=== PATIENT | female | born 1990 | race Caucasian/White ===

== ENCOUNTER 2020-05-12 22:46 | Inpatient (IN) | payer OTHER, BC ==
[2020-05-12] MEDS ORDERED: Lidocaine 1% 30 ML SDV INJECT PRN (23:16)
[2020-05-12] MEDS ORDERED: Ondansetron 4 MG/2 ML SDV IVPUSH PRN (23:16)
[2020-05-12] MEDS ORDERED: Lactated Ringers 1,000 ML IV ONE (23:16)
[2020-05-12] MEDS ORDERED: Sodium Chloride 0.9% 10 ML Syringe FLUSH PRN (23:16)
[2020-05-12] MEDS ORDERED: Misoprostol 400 MCG (4 X 100 MCG TAB) RECTAL PRN (23:16)
[2020-05-12] MEDS ORDERED: Tranexamic Acid 1,000 MG in Sodium Chloride 0.9% 100 ML IV PRN (23:16)
[2020-05-12] MEDS ORDERED: Carboprost Tromethamine 250 MCG/1 ML Amp IM PRN (23:16)
[2020-05-12] MEDS ORDERED: Methylergonovine 0.2 MG/1 ML Amp IM PRN (23:16)
[2020-05-12] MEDS: Lactated Ringers 1,000 ML IV SCH (23:20)
[2020-05-13] MEDS: Oxytocin/Normal Saline 30 UNIT/500 ML BAG IV SCH ×2 (00:12→02:43)
[2020-05-13] MEDS ORDERED: Tranexamic Acid 1,000 MG in Sodium Chloride 0.9% 100 ML IV PRN (00:17)
[2020-05-13] MEDS ORDERED: Oxytocin 10 Units/1 ML SDV IM PRN (00:17)
[2020-05-13] MEDS ORDERED: Sodium Chloride 0.9% 10 ML Syringe FLUSH PRN (00:17)
[2020-05-13] MEDS ORDERED: Benzocaine/Menthol 20%-0.5% Spray 56 GM Canister TOP PRN (00:17)
[2020-05-13] MEDS ORDERED: Zolpidem 5 MG Tab PO PRN (00:17)
[2020-05-13] MEDS ORDERED: Misoprostol 400 MCG (4 X 100 MCG TAB) RECTAL PRN (00:17)
[2020-05-13] MEDS ORDERED: Simethicone 80 MG Tab.Chew PO PRN (00:17)
[2020-05-13] MEDS ORDERED: Carboprost Tromethamine 250 MCG/1 ML Amp IM PRN (00:17)
[2020-05-13] MEDS: Ibuprofen 800 MG Tab PO PRN ×3 (00:49→17:23)
[2020-05-13] MEDS: Acetaminophen 325 MG Tab PO PRN ×4 (00:50→23:58)
[2020-05-13] MEDS: Lactated Ringers 1,000 ML IV SCH (02:42)
[2020-05-13] MEDS: Prenatal Multivitamin with Calcium/Folic Acid/Iron Tab PO SCH (09:06)
--- NOTE | 2020-05-13 16:28 | DEL ---
DATE: 05/12/2020 PRE-DELIVERY DIAGNOSIS: This is an intrauterine at term, admitted in active labor. PROCEDURE: A normal spontaneous vaginal delivery. FINDINGS: There was a second-degree midline laceration which was repaired with lidocaine. Baby did weigh 3390 g. score was 7 and 9. ESTIMATED BLOOD LOSS: Normal for vaginal delivery. PROCEDURE IN DETAIL: The patient was admitted to Labor and Delivery already entering the second phase of labor. She declined intrathecal. She was group B strep negative. She began pushing. 's head was delivered without any difficulties. With some gentle traction, the shoulder was delivered. The was completely delivered and placed on the maternal abdomen. The delayed cord clamping was then performed. Cord was cut and clamped. Cord blood was collected. The was doing well. score 7 and 9. Baby weighed 3390 g. The midline laceration was injected with local anesthesia. The midline laceration was repaired with a 3-0 Vicryl in a normal fashion. The placenta was then delivered without any difficulties, intact. The uterus was massaged and third stage Pitocin was started and estimated blood loss was normal for vaginal delivery. At the end of the procedure, mom and baby were both doing well. [facility] /[id number]
[2020-05-13] MEDS: Docusate Sodium 100 MG Cap PO PRN (19:31)
[2020-05-14] MEDS: Ibuprofen 800 MG Tab PO PRN (04:31)
[2020-05-14] MEDS: Docusate Sodium 100 MG Cap PO PRN (08:44)
[2020-05-14] MEDS: Acetaminophen 325 MG Tab PO PRN (08:45)
[2020-05-14] MEDS: Prenatal Multivitamin with Calcium/Folic Acid/Iron Tab PO SCH (08:45)
--- NOTE | 2020-05-14 08:48 | HP ---
LOCATION: [facility]. HISTORY OF PRESENT ILLNESS: The patient is a 29-year-old, G1, at 39 weeks and 4 days' gestational age with contractions and loss of fluid. She has had no vaginal bleeding, good movement. This is a Femara . She is on metformin. OB HISTORY: The patient is a G1. MANAGER TAX HISTORY: She did have an abnormal Pap previously, though followup was negative. PAST MEDICAL HISTORY: Negative. PAST SURGICAL HISTORY: A foot surgery and wisdom teeth removed. SOCIAL HISTORY: The patient does not smoke. ALLERGIES: The patient has no known drug allergies. care so far: The patient's blood type O-positive, antibody negative. She is rubella immune. Syphilis negative. Hepatitis B negative. HIV negative. Gonorrhea and chlamydia negative. 1 hour was 145, but 3-hour was normal. Group B strep was negative. On 01/04/2020, she did have an ultrasound, which showed a low anterior placenta, but anatomy was normal. On 03/27/2020, interval growth scan was normal and the low placenta had resolved. PHYSICAL EXAMINATION: Vital Signs: The patient is afebrile. Heart rate 101, blood pressure 136/77, respiratory rate 20. EFM is reactive, reassuring. She is vince every 2 to 3 minutes. When I checked her in the OB triage, she was already complete and +2 station. LABORATORY DATA: The patient's CBC; white count 15, hemoglobin 15.1, platelets 293, and she is COVID negative. ASSESSMENT AND PLAN: Intrauterine at term, in active labor, entering the second phase of labor. We will expect a normal spontaneous vaginal delivery, and she is group B strep negative. [facility] /[id number]
--- NOTE | 2020-05-14 20:21 | DISCH ---
FINAL DIAGNOSES: Spontaneous vaginal delivery at 39-4/7-week gestation, O positive blood type, rubella immune, group B strep negative, history of infertility, viable female , anemia, primipara delivered. FINDINGS: This delightful 29-year-old 1, para 0 at 30-4/7 weeks' gestation presented with onset of active labor with contractions and loss of clear fluid. She had good movement and no bleeding. She had a history of infertility and had seen Dr. Rivas early on and had been on metformin throughout the . Please see her notes for details. Labs were as noted. Please see her admission H and P for further details of her labs and her care. She is very compliant with her care. Ultrasound was consistent with her menstrual dates and infertility dates. Preliminary ultrasound showed low-lying placenta, but followup was normal. Anatomy was normal and did show 97 percentile for baby size. However, followup showed a 26 percentile. One-hour sugar screen was elevated, but 3-hour testing was within normal limits. On arrival, she had advanced cervical dilation. Admission hemoglobin was 15.1. Her COVID testing was negative. Platelet count was normal, and her monitoring was reassuring, category 1 strip. She began pushing with excellent results and subsequently went on to deliver a viable female , weighing 7 pounds 7 ounces/3390 g with scores of 7 and 7 on 05/12/2020 at 2358. She had a second-degree laceration, which was repaired in standard fashion under local anesthesia by Dr. Rivas. Please see his notes for further details. Her course was uneventful and there were no complications. She is without difficulty. Her fundus has remained firm and her flow is within normal limits. She is afebrile with stable vital signs. She is voiding and ambulating without difficulty and has been able to eat without any problems. She has had no complications and would like to be discharged home on day #2. All of her questions have been answered. We will follow routine care. Her followup hemoglobin was 11.1, and we will have her continue her vitamins daily, iron b.i.d., over-the- counter nonsteroidals such as ibuprofen or Aleve as needed. We will see her back for a 6-week check and sooner with any problems. exam was done in its completion in front of the parents with the usual review and all their questions were answered. CONDITION AT DISCHARGE: Good. [facility] /[id number]
== END 2020-05-14 14:25 | disposition home or self-care (01) | DRG 807 ==
LOC: DL.OBCHECK 22:46 → DL.OB 23:17 → OBSVTOIN 23:58 → DL.OB 23:58
PROVIDERS: ADMIT Obstetrics & Gynecology; ATTEND Obstetrics & Gynecology
PROC: 10E0XZZ Delivery of Products of Conception, External Approach (ICD-10-PCS; principal; 2020-05-12)
PROC: 0KQM0ZZ Repair Perineum Muscle, Open Approach (ICD-10-PCS; 2020-05-12)
DX: O70.1 Second degree perineal laceration during delivery (principal); Z37.0 Single live birth; O90.81 Anemia of the puerperium; D64.9 Anemia, unspecified; Z3A.39 39 weeks gestation of pregnancy; Z20.828 Contact with and (suspected) exposure to other viral communicable diseases
CPT/HCPCS: 36415; 59409; 85027; A9270-GY; J2001; J2590; J7120; U0002